=== PATIENT | male | born 1960 | race Caucasian/White ===

== ENCOUNTER 2018-03-08 12:02 | Emergency (ER) | payer OTHER ==
[2018-03-08 12:31] VITALS: BP 161/99
[2018-03-08] MEDS ORDERED: Alum Hydrox/Mag Hydrox/Simeth 15 ML, Lidocaine 2% 15 ML PO ONE ×2 (13:20)
--- NOTE | 2018-03-08 13:29 | EDM.PDOC ---
<Kate Angeles N - Last Filed: 03/08/18 13:23> ED HPI GENERAL MEDICAL PROBLEM - General Chief Complaint: Respiratory Problem Stated Complaint: FEELING WEAK, SOB Time Seen by Provider: 03/08/18 15:34 - History of Present Illness INITIAL COMMENTS - FREE TEXT/NARRATIVE: Pako is a 57-year-old male that presents to the ER with complaints of exertional dyspnea and weakness which began yesterday. States that he notices increases in his heart rate as well as difficulty breathing with any activity. Reports an ongoing productive cough over the past month as well as post-nasal drip. Denies any earache, sore throat, fevers, or chills. He has had some diarrhea over the past two days as well. He is a known alcoholic, and states he last drank 6 beers three days ago. He denies any illicit drug use, but does chew tobacco 1 pack/day. He ran out of his Clonazepam two days ago, and thinks he may be in withdrawals from that. He also reports mid-epigastric tenderness which is burning and heavy in nature. - Related Data Allergies Allergy/AdvReac Type Severity Reaction Status Date / Time No Known Allergies Allergy Verified 03/08/18 12:30 Home Meds: Home Meds Cetirizine HCl [Wal-Zyr] 10 mg PO DAILY 03/26/15 [History] ClonazePAM [KlonoPIN] 1 mg PO BEDTIME 03/26/15 [History] FLUoxetine [PROzac] 80 mg PO DAILY 03/26/15 [History] Pantoprazole Sodium 40 mg PO BID 03/26/15 [History] Simvastatin [Zocor] 10 mg PO BEDTIME 03/26/15 [History] Amoxicillin/Clavulanate K [Augmentin 875-125 MG] 1 tab PO BID #20 tablet [Rx] clonazePAM [Clonazepam] 1 mg PO QPM #10 tab.rapdis 03/08/18 [Rx] Past Medical History Gastrointestinal History: Reports: GERD Musculoskeletal History: Reports: Fracture Neurological History: Reports: Concussion Other Neuro History: Restless leg syndrome Psychiatric History: Reports: Addiction, Depression - Infectious Disease History Infectious Disease History: Reports: Chicken Pox - Past Surgical History GI Surgical History: Reports: Colonoscopy, EGD Social & Family History - Family History Cardiac: Reports: CAD - Tobacco Use Smoking Status *Q: Never Smoker Years of Tobacco use: 40 Packs/Tins Daily: 1 Used Tobacco, but Quit: No Second Hand Smoke Exposure: No - Caffeine Use Caffeine Use: Reports: Soda - Alcohol Use Days Per Week of Alcohol Use: 1 Number of Drinks Per Day: 6 Total Drinks Per Week: 6 Date of Last Drink: 03/05/18 Time of Last Drink: 23:00 - Recreational Drug Use Recreational Drug Use: No ED ROS GENERAL - Review of Systems Constitutional: Reports: Weakness, Fatigue. Denies: Fever, Chills, Malaise HEENT: Reports: Eye Discharge, Rhinitis. Denies: Ear Discharge, Ear Pain, Hearing Loss, Throat Pain, Vision Change Respiratory: Reports: Shortness of Breath, Cough, Sputum (Green). Denies: Pleuritic Chest Pain, Hemoptysis Cardiovascular: Reports: Dyspnea on Exertion, Palpitations. Denies: Chest Pain , Edema Endocrine: Reports: Fatigue GI/Abdominal: Reports: Abdominal Pain (Upper quadrants bilaterally), Diarrhea, Nausea. Denies: Hematemesis, Vomiting : Denies: Frequency, Pain Musculoskeletal: Reports: No Symptoms Skin: Reports: No Symptoms Neurological: Reports: Confusion (Occasional with dyspneic episodes), Weakness. Denies: Gait Disturbance Psychiatric: Reports: Anxiety, Confusion, Depression Hematologic/Lymphatic: Denies: Swollen Glands ED EXAM, GENERAL - Physical Exam General Appearance: Alert, No Apparent Distress, Anxious (Mildly) Eye Exam: Bilateral Eye: Conjunctival Injection, Nystagmus, PERRL Ears: Normal External Exam, Normal Canal, Hearing Grossly Normal, Normal TMs Ear Exam: Bilateral Ear: Auricle Normal, Canal Normal, TM normal Nose: Normal Inspection, Normal Mucosa, No Blood. No: Nasal Flaring Throat/Mouth: Normal Inspection, Normal Oropharynx, Other (Discolored teeth) Head: Atraumatic, Normocephalic Neck: Normal Inspection, Non-Tender. No: Lymphadenopathy (R), Lymphadenopathy ( L) Respiratory/Chest: No Respiratory Distress, Lungs Clear, Normal Breath Sounds Cardiovascular: Normal Peripheral Pulses, Regular Rate, Rhythm, No Edema, No Gallop, No Murmur, No Rub Peripheral Pulses: 2+: Radial (L), Radial (R) GI/Abdominal: Normal Bowel Sounds, Soft, No Mass, Tender (LUQ tenderness to palpation) (Male) Exam: Deferred Rectal (Males) Exam: Deferred Neurological: Alert, Oriented, Normal Cognition, Slow to Respond Psychiatric: Anxious Skin Exam: Warm, Dry, Intact, Normal Color Lymphatic: No Adenopathy Course - Vital Signs Last Recorded V/S: Last Vital Signs Temp 97.5 F 03/08/18 12:33 Pulse 88 03/08/18 12:33 Resp 20 03/08/18 12:33 BP 161/99 H 03/08/18 12:33 Pulse Ox 98 03/08/18 12:33 - Orders/Labs/Meds Orders: Active Orders 24 hr Category Date Time Status Cardiac Monitoring [RC] .As Directed Care 03/08/18 13:18 Active EKG Documentation Completion [RC] ASDIRECTED Care 03/08/18 13:19 Active Chest 2V [CR] Stat Exams 03/08/18 13:18 Taken EKG 12 Lead [EK] Stat Ther 03/08/18 13:18 Ordered Labs: Laboratory Tests 03/08/18 03/08/18 03/08/18 Range/Units 13:20 13:35 13:35 WBC 6.6 (4.5-11.0) K/uL RBC 4.58 (4.30-5.90) M/uL Hgb 14.2 (12.0-15.0) g/dL Hct 40.5 (40.0-54.0) % MCV 88 (80-98) fL MCH 31 (27-31) pg MCHC 35 (32-36) % Plt Count 293 (150-400) K/uL Neut % (Auto) 75 H (36-66) % Lymph % (Auto) 15 L (24-44) % [place] % (Auto) 9 H (2-6) % Eos % (Auto) 0 L (2-4) % Baso % (Auto) 0 (0-1) % Sodium 133 L (140-148) mmol/L Potassium 3.8 (3.6-5.2) mmol/L Chloride 94 L (100-108) mmol/L Carbon Dioxide 27 (21-32) mmol/L Anion Gap 15.8 H (5.0-14.0) mmol/L BUN 6 L (7-18) mg/dL Creatinine 0.9 (0.8-1.3) mg/dL Est Cr Clr Drug Dosing 99.96 mL/min Estimated GFR (MDRD) > 60 (>60) Glucose 109 H (74-106) mg/dL Lactic Acid (0.4-2.0) mmol/L Calcium 9.3 (8.5-10.1) mg/dL Total Bilirubin 0.7 (0.2-1.0) mg/dL AST 20 (15-37) U/L ALT 26 (12-78) U/L Alkaline Phosphatase 66 (46-116) U/L CK-MB (CK-2) 1.0 (0-3.6) mg/mL Troponin I < 0.017 (0.000-0.056) ng/mL NT-Pro-B Natriuret Pep (5-125) pg/mL Total Protein 7.5 (6.4-8.2) g/dL Albumin 4.0 (3.4-5.0) g/dL Globulin 3.5 (2.3-3.5) g/dL Albumin/Globulin Ratio 1.1 L (1.2-2.2) Urine Opiates Screen Negative (NEGATIVE) Ur Oxycodone Screen Negative (NEGATIVE) Urine Methadone Screen Negative (NEGATIVE) Ur Propoxyphene Screen Negative (NEGATIVE) Ur Barbiturates Screen Negative (NEGATIVE) Ur Tricyclics Screen Negative (NEGATIVE) Ur Phencyclidine Scrn Negative (NEGATIVE) Ur Amphetamine Screen Negative (NEGATIVE) U Methamphetamines Scrn Negative (NEGATIVE) Urine MDMA Screen Negative (NEGATIVE) U Benzodiazepines Scrn Negative (NEGATIVE) U Cocaine Metab Screen Negative (NEGATIVE) U Marijuana (THC) Screen Negative (NEGATIVE) Ethyl Alcohol mg/dL 03/08/18 03/08/18 03/08/18 Range/Units 13:35 13:35 13:52 WBC (4.5-11.0) K/uL RBC (4.30-5.90) M/uL Hgb (12.0-15.0) g/dL Hct (40.0-54.0) % MCV (80-98) fL MCH (27-31) pg MCHC (32-36) % Plt Count (150-400) K/uL Neut % (Auto) (36-66) % Lymph % (Auto) (24-44) % [place] % (Auto) (2-6) % Eos % (Auto) (2-4) % Baso % (Auto) (0-1) % Sodium (140-148) mmol/L Potassium (3.6-5.2) mmol/L Chloride (100-108) mmol/L Carbon Dioxide (21-32) mmol/L Anion Gap (5.0-14.0) mmol/L BUN (7-18) mg/dL Creatinine (0.8-1.3) mg/dL Est Cr Clr Drug Dosing mL/min Estimated GFR (MDRD) (>60) Glucose (74-106) mg/dL Lactic Acid 1.3 (0.4-2.0) mmol/L Calcium (8.5-10.1) mg/dL Total Bilirubin (0.2-1.0) mg/dL AST (15-37) U/L ALT (12-78) U/L Alkaline Phosphatase (46-116) U/L CK-MB (CK-2) (0-3.6) mg/mL Troponin I (0.000-0.056) ng/mL NT-Pro-B Natriuret Pep 67 (5-125) pg/mL Total Protein (6.4-8.2) g/dL Albumin (3.4-5.0) g/dL Globulin (2.3-3.5) g/dL Albumin/Globulin Ratio (1.2-2.2) Urine Opiates Screen (NEGATIVE) Ur Oxycodone Screen (NEGATIVE) Urine Methadone Screen (NEGATIVE) Ur Propoxyphene Screen (NEGATIVE) Ur Barbiturates Screen (NEGATIVE) Ur Tricyclics Screen (NEGATIVE) Ur Phencyclidine Scrn (NEGATIVE) Ur Amphetamine Screen (NEGATIVE) U Methamphetamines Scrn (NEGATIVE) Urine MDMA Screen (NEGATIVE) U Benzodiazepines Scrn (NEGATIVE) U Cocaine Metab Screen (NEGATIVE) U Marijuana (THC) Screen (NEGATIVE) Ethyl Alcohol < 3 mg/dL Meds: Medications Discontinued Medications Generic Name Dose Route Start Last Admin Trade Name Freq PRN Reason Stop Dose Admin Al Hydroxide/Mg Hydroxide 15 0 ml 03/08/18 13:20 03/08/18 13:32 ml/ Lidocaine HCl 15 ml PO 03/08/18 13:21 30 ml ONETIME ONE Administration Departure - Departure Disposition: Home, Self-Care 01 Clinical Impression: Sinusitis Qualifiers: Sinusitis location: maxillary Chronicity: acute Recurrence: non-recurrent Qualified Code(s): J01.00 - Acute maxillary sinusitis, unspecified - Discharge Information Prescriptions: Amoxicillin/Clavulanate K [Augmentin 875-125 MG] 1 tab PO BID #20 tablet clonazePAM [Clonazepam] 1 mg PO QPM #10 tab.rapdis Referrals: Gabrielle Pena MD [Primary Care Provider] - Forms: ED Department Discharge Additional Instructions: Take full course of antibiotics, resume your Klonopin, Please followup with your primary care provider in 5-7 days if not better, please call return to the emergency department with worsening of symptoms. Your medications have been faxed to [facility] <Bashir Ott - Last Filed: 03/08/18 15:34> ED ROS GENERAL - Review of Systems Review Of Systems: See Below ED EXAM, GENERAL - Physical Exam Exam: See Below Free Text/Narrative:: Examined by myself and agree with examination by nurse practitioner student Departure - Departure Time of Disposition: 15:33 Condition: Fair - Assessment/Plan Plan: Assessment Acuity = acute Site and laterality = sinusitis Etiology = probable bacterial cause Manifestations = none Location of injury = Home Lab values = CBC, CMP, troponin, BNP, EKG, chest x-ray all within normal limits Plan I did review lab EKG chest x-ray results with him plan is to discharge home treatment with Augmentin 875 by mouth twice a day 10 days also prescription refill of his clonazepam 1 mg by mouth daily at bedtime total #10 all these medications faxed alcohol herrera have him follow-up with his primary care provider in the next 5-7 days for reevaluation if no improvement Bashir Campos MD was personally available for consultation in the ED. I have reviewed the chart and agree with the documentation as recorded by the nurse practitioner student, including the assessment, treatment plan and disposition. Bashir Campos MD personally saw and examined the patient. I have reviewed and agree with the nurse practitioner student's findings. This note was dictated using [employer] voice recognition software please call with any questions on syntax or grammar.
== END 2018-03-08 15:51 | disposition home or self-care (01) ==
LOC: JP.ED 12:02
DX: J01.00 Acute maxillary sinusitis, unspecified (principal); Z79.899 Other long term (current) drug therapy
CPT/HCPCS: 36415; 71046; 80053; 80305; 82553; 83605; 83880; 84484; 85025; 93005; 99285; A9270; G0480; 93010

== ENCOUNTER 2018-05-06 10:28 | Emergency (ER) | payer OTHER ==
[2018-05-06 11:47] VITALS: BP 149/98
--- NOTE | 2018-05-06 11:47 | EDM.PDOCBH ---
ED HPI GENERAL MEDICAL PROBLEM - General Chief Complaint: Drug or Alcohol Abuse Stated Complaint: DETOX EVAL Time Seen by Provider: 05/06/18 11:35 Source of Information: Reports: Patient, Family History Limitations: Reports: No Limitations - History of Present Illness INITIAL COMMENTS - FREE TEXT/NARRATIVE: 57-year-old male with chronic alcoholism, he has been through treatment before is in today seeking detox. He also has chronic anxiety and takes clonazepam on a regular basis, he has not had any for the last 3 days. Feels irritable and shaky but is stable. Last known EtOH was this morning. Onset: Unknown/Unsure Associated Symptoms: Reports: Confusion, Malaise, Nausea/Vomiting, Weakness. Denies: Chest Pain - Related Data Allergies Allergy/AdvReac Type Severity Reaction Status Date / Time No Known Allergies Allergy Verified 03/08/18 12:30 Home Meds: Home Meds Cetirizine HCl [Wal-Zyr] 10 mg PO DAILY 03/26/15 [History] ClonazePAM [KlonoPIN] 1 mg PO BEDTIME 03/26/15 [History] FLUoxetine [PROzac] 80 mg PO DAILY 03/26/15 [History] Pantoprazole Sodium 40 mg PO BID 03/26/15 [History] Simvastatin [Zocor] 10 mg PO BEDTIME 03/26/15 [History] clonazePAM [Clonazepam] 1 mg PO QPM #10 tab.rapdis 03/08/18 [Rx] Past Medical History Gastrointestinal History: Reports: GERD Musculoskeletal History: Reports: Fracture Neurological History: Reports: Concussion Other Neuro History: Restless leg syndrome Psychiatric History: Reports: Addiction, Depression - Infectious Disease History Infectious Disease History: Reports: Chicken Pox - Past Surgical History GI Surgical History: Reports: Colonoscopy, EGD Social & Family History - Family History Cardiac: Reports: CAD - Tobacco Use Smoking Status *Q: Never Smoker - Caffeine Use Caffeine Use: Reports: Soda - Alcohol Use Days Per Week of Alcohol Use: 3 Number of Drinks Per Day: 12 Total Drinks Per Week: 36 - Recreational Drug Use Recreational Drug Use: No ED ROS GENERAL - Review of Systems Review Of Systems: See Below Constitutional: Reports: Chills. Denies: Fever HEENT: Reports: No Symptoms Respiratory: Denies: Shortness of Breath Cardiovascular: Denies: Chest Pain GI/Abdominal: Reports: Abdominal Pain, Nausea, Vomiting : Reports: No Symptoms Skin: Reports: No Symptoms Neurological: Reports: Headache ED EXAM, BEHAVIORAL HEALTH - Physical Exam Exam: See Below Exam Limited By: Intoxication General Appearance: Alert, No Apparent Distress, Other (Patient appears tired but when awoken he is somewhat agitated) Eye Exam: Bilateral Eye: Normal Inspection (No jaundice) Neck: Supple Respiratory/Chest: No Respiratory Distress, Lungs Clear Cardiovascular: Regular Rate, Rhythm. No: Tachycardia GI/Abdominal: Other (Reacts with tenderness to even light palpation of the entire abdomen) Extremities: No: Pedal Edema Neurological: Oriented x 3 Psychiatric: Depressed Mood, Flat Affect, Tearful COURSE, BEHAVIORAL HEALTH COMP - Course Vital Signs: Last Vital Signs Temp 98.6 F 05/06/18 11:46 Pulse 82 05/06/18 11:46 Resp 18 05/06/18 11:46 BP 149/98 H 05/06/18 11:46 Pulse Ox 97 05/06/18 11:46 Orders, Labs, Meds: Laboratory Tests 05/06/18 05/06/18 05/06/18 Range/Units 11:49 11:49 11:56 WBC 4.6 (4.5-11.0) K/uL RBC 4.73 (4.30-5.90) M/uL Hgb 14.6 (12.0-15.0) g/dL Hct 41.8 (40.0-54.0) % MCV 88 (80-98) fL MCH 31 (27-31) pg MCHC 35 (32-36) % Plt Count 328 (150-400) K/uL Neut % (Auto) 56 (36-66) % Lymph % (Auto) 35 (24-44) % [place] % (Auto) 8 H (2-6) % Eos % (Auto) 0 L (2-4) % Baso % (Auto) 1 (0-1) % Sodium (140-148) mmol/L Potassium (3.6-5.2) mmol/L Chloride (100-108) mmol/L Carbon Dioxide (21-32) mmol/L Anion Gap (5.0-14.0) mmol/L BUN (7-18) mg/dL Creatinine (0.8-1.3) mg/dL Est Cr Clr Drug Dosing mL/min Estimated GFR (MDRD) (>60) Glucose (74-106) mg/dL Calcium (8.5-10.1) mg/dL Total Bilirubin (0.2-1.0) mg/dL AST (15-37) U/L ALT (12-78) U/L Alkaline Phosphatase (46-116) U/L Total Protein (6.4-8.2) g/dL Albumin (3.4-5.0) g/dL Globulin (2.3-3.5) g/dL Albumin/Globulin Ratio (1.2-2.2) Urine Color Yellow Urine Appearance Clear Urine pH 8.0 (4.5-8.0) Ur Specific [place] 1.005 L (1.008-1.030) Urine Protein Negative (NEGATIVE) mg/dL Urine Glucose (UA) Normal (NEGATIVE) mg/dL Urine Ketones Negative (NEGATIVE) mg/dL Urine Occult Blood Negative (NEGATIVE) Urine Nitrite Negative (NEGAITVE) Urine Bilirubin Negative (NEGATIVE) Urine Urobilinogen Normal (NORMAL) mg/dL Ur Leukocyte Esterase Negative (NEGATIVE) Urine RBC Not seen (0-5) Urine WBC Not seen (0-5) Ur Epithelial Cells Rare Amorphous Sediment Not seen Urine Bacteria Not seen Urine Mucus Not seen Urine Opiates Screen Negative (NEGATIVE) Ur Oxycodone Screen Negative (NEGATIVE) Urine Methadone Screen Negative (NEGATIVE) Ur Propoxyphene Screen Negative (NEGATIVE) Ur Barbiturates Screen Negative (NEGATIVE) Ur Tricyclics Screen Negative (NEGATIVE) Ur Phencyclidine Scrn Negative (NEGATIVE) Ur Amphetamine Screen Negative (NEGATIVE) U Methamphetamines Scrn Negative (NEGATIVE) Urine MDMA Screen Negative (NEGATIVE) U Benzodiazepines Scrn Negative (NEGATIVE) U Cocaine Metab Screen Negative (NEGATIVE) U Marijuana (THC) Screen Negative (NEGATIVE) Ethyl Alcohol mg/dL 05/06/18 05/06/18 Range/Units 11:56 11:56 WBC (4.5-11.0) K/uL RBC (4.30-5.90) M/uL Hgb (12.0-15.0) g/dL Hct (40.0-54.0) % MCV (80-98) fL MCH (27-31) pg MCHC (32-36) % Plt Count (150-400) K/uL Neut % (Auto) (36-66) % Lymph % (Auto) (24-44) % [place] % (Auto) (2-6) % Eos % (Auto) (2-4) % Baso % (Auto) (0-1) % Sodium 135 L (140-148) mmol/L Potassium 3.6 (3.6-5.2) mmol/L Chloride 97 L (100-108) mmol/L Carbon Dioxide 23 (21-32) mmol/L Anion Gap 18.6 H (5.0-14.0) mmol/L BUN 5 L (7-18) mg/dL Creatinine 0.7 L (0.8-1.3) mg/dL Est Cr Clr Drug Dosing 133.17 mL/min Estimated GFR (MDRD) > 60 (>60) Glucose 105 (74-106) mg/dL Calcium 9.0 (8.5-10.1) mg/dL Total Bilirubin 0.6 (0.2-1.0) mg/dL AST 26 (15-37) U/L ALT 23 (12-78) U/L Alkaline Phosphatase 78 (46-116) U/L Total Protein 7.5 (6.4-8.2) g/dL Albumin 4.0 (3.4-5.0) g/dL Globulin 3.5 (2.3-3.5) g/dL Albumin/Globulin Ratio 1.1 L (1.2-2.2) Urine Color Urine Appearance Urine pH (4.5-8.0) Ur Specific [place] (1.008-1.030) Urine Protein (NEGATIVE) mg/dL Urine Glucose (UA) (NEGATIVE) mg/dL Urine Ketones (NEGATIVE) mg/dL Urine Occult Blood (NEGATIVE) Urine Nitrite (NEGAITVE) Urine Bilirubin (NEGATIVE) Urine Urobilinogen (NORMAL) mg/dL Ur Leukocyte Esterase (NEGATIVE) Urine RBC (0-5) Urine WBC (0-5) Ur Epithelial Cells Amorphous Sediment Urine Bacteria Urine Mucus Urine Opiates Screen (NEGATIVE) Ur Oxycodone Screen (NEGATIVE) Urine Methadone Screen (NEGATIVE) Ur Propoxyphene Screen (NEGATIVE) Ur Barbiturates Screen (NEGATIVE) Ur Tricyclics Screen (NEGATIVE) Ur Phencyclidine Scrn (NEGATIVE) Ur Amphetamine Screen (NEGATIVE) U Methamphetamines Scrn (NEGATIVE) Urine MDMA Screen (NEGATIVE) U Benzodiazepines Scrn (NEGATIVE) U Cocaine Metab Screen (NEGATIVE) U Marijuana (THC) Screen (NEGATIVE) Ethyl Alcohol 292 mg/dL Re-Assessment/Re-Exam: Patient is willing to go to detox. His EtOH is 0.292. Urine drug screen is negative, the rest of his labs are reassuring including a normal CBC and relatively normal CMP. He'll be transported by his son Departure - Departure Time of Disposition: 12:49 Disposition: DC/Tfer to Other 70 Condition: Fair Clinical Impression: Alcohol abuse - Discharge Information Instructions: Alcohol Intoxication, [id number] Referrals: Gabrielle Pena MD [Primary Care Provider] - Forms: ED Department Discharge Care Plan Goals: Go directly to [facility] for admission and treatment.
== END 2018-05-06 15:45 | disposition other institution (70) ==
LOC: JP.ED 10:28
DX: F10.229 Alcohol dependence with intoxication, unspecified (principal); Y90.8 Blood alcohol level of 240 mg/100 ml or more
CPT/HCPCS: 36415; 80053; 80305; 81001; 85025; 99284; G0480

== ENCOUNTER 2018-11-24 20:14 | Emergency (ER) | payer OTHER ==
[2018-11-24] MEDS ORDERED: Ondansetron 4 MG/2 ML SDV IVPUSH ONE ×2 (20:52→22:20)
[2018-11-24 20:56] VITALS: BP 116/83; PULSE 84
--- NOTE | 2018-11-24 20:59 | EDM.PDOC ---
ED HPI GENERAL MEDICAL PROBLEM - General Chief Complaint: ENT Problem Stated Complaint: LEFT UPPER JAW/TOOTH PAIN Time Seen by Provider: 11/24/18 20:40 Source of Information: Reports: Patient, Family (female significant other) History Limitations: Reports: Altered Mental Status (likely alcohol intoxication and dehydration) - History of Present Illness INITIAL COMMENTS - FREE TEXT/NARRATIVE: 57 year old male is brought to ER but significant other due to significant dental pain concerns and alcohol use over the last 2 weeks. Patient has a history of alcohol abuse and intoxication and was doing well until 2 weeks ago and has been drinking and taking ASA for tooth pain without improvement. Patient has numerous poor teeth and poor oral health. He has had increased pain in his right lower jaw. Patient has not ate anything in almost 3 days due to nausea and vomiting. Patient has been vomiting up blood for the last 24 hours. Patient has not had a bowel movement in the last 3 days. He denies urinary symptoms or concerns. Patient denies rashes or sore to his skin. He denies headache, cough or URI symptoms. Patient has had intermittent chest pain with dry heaving and vomiting. Patient is complaining of feeling weak which is typical for his alcohol visit. Patient has a history long standing alcohol use with relapse the last 2 weeks or longer. - Related Data Allergies Allergy/AdvReac Type Severity Reaction Status Date / Time No Known Allergies Allergy Verified 11/24/18 20:23 Home Meds: Home Meds ClonazePAM [KlonoPIN] 1 mg PO BEDTIME 03/26/15 [History] Pantoprazole Sodium 40 mg PO BID 03/26/15 [History] Chlorhexidine Gluconate 0.12% [Peridex 0.12% Rinse] 15 ml MM BID 10 Days #480 ml 11/24/18 [Rx] Omeprazole 20 mg PO DAILY 30 Days #30 capsule. 11/24/18 [Rx] Sertraline [Zoloft] 0.5 tab PO DAILY 11/24/18 [History] Sucralfate [Carafate] 1 gm PO QIDACANDBED 10 Days #40 tablet 11/24/18 [Rx] clonazePAM [Clonazepam] 1 mg PO BID PRN 5 Days #10 tab.rapdis 11/24/18 [Rx] clonazePAM [Klonopin] 1 mg PO BEDTIME 10 Days #10 tablet 11/24/18 [Rx] Past Medical History Gastrointestinal History: Reports: GERD Musculoskeletal History: Reports: Fracture Neurological History: Reports: Concussion Other Neuro History: Restless leg syndrome Psychiatric History: Reports: Addiction, Depression - Infectious Disease History Infectious Disease History: Reports: Chicken Pox - Past Surgical History GI Surgical History: Reports: Colonoscopy, EGD Social & Family History - Family History Cardiac: Reports: CAD - Caffeine Use Caffeine Use: Reports: Soda - Recreational Drug Use Recreational Drug Use: No ED ROS GENERAL - Review of Systems Review Of Systems: Unable To Obtain (limited due to alcohol intoxication and dehydration with dry heaving) ED EXAM, GENERAL - Physical Exam Exam: See Below Exam Limited By: Intoxication (possible (likely)) General Appearance: Alert, Moderate Distress (nausea/vomiting with facial ), Thin Eye Exam: Bilateral Eye: EOMI, PERRL Ears: Normal External Exam, Normal Canal, Hearing Grossly Normal Nose: Normal Inspection, Normal Mucosa Throat/Mouth: Normal Inspection, Normal Lips, Normal Oropharynx (unable to assess due to gagging with opening mouth), Normal Voice. No: Normal Teeth, Normal Gums Head: Normocephalic Neck: Normal Inspection, Supple, Non-Tender, Full Range of Motion Respiratory/Chest: No Respiratory Distress, Lungs Clear, No Accessory Muscle Use , Decreased Breath Sounds Cardiovascular: Normal Peripheral Pulses, Regular Rate, Rhythm GI/Abdominal: Other (thin ) Back Exam: Normal Inspection, Full Range of Motion. No: CVA Tenderness (R), CVA Tenderness (L) Neurological: Slow to Respond, Memory Loss Recent Events, Abnormal Gait, Sensory /Motor Deficit (general functional deficets noted) EKG INTERPRETATION EKG Date: 11/24/18 Time: 21:28 Rhythm: NSR Rate (Beats/Min): 95 [place]: LAD-Left Bartlett Deviation P-Wave: Present QRS: Normal ST-T: Normal (flattening of T wave in V2 w/ RSR' in V1 and V2) QT: Prolonged (boarderline 457) Comparison: No Change (dated February 2018) Course - Vital Signs Last Recorded V/S: Last Vital Signs Temp 37.1 C 11/24/18 20:37 Pulse 84 11/24/18 20:37 Resp 14 11/24/18 20:37 BP 116/83 11/24/18 20:37 Pulse Ox 94 L 11/24/18 20:37 - Orders/Labs/Meds Orders: Active Orders 24 hr Category Date Time Status Cardiac Monitoring [RC] .As Directed Care 11/24/18 20:49 Active EKG Documentation Completion [RC] ASDIRECTED Care 11/24/18 20:49 Active EKG Documentation Completion [RC] ASDIRECTED Care 11/24/18 20:51 Inactive Sodium Chloride 0.9% [Normal Saline] 1,000 ml Med 11/24/18 21:00 Active IV ASDIRECTED Sodium Chloride 0.9% [Normal Saline] 1,000 ml Med 11/24/18 21:45 Active IV ASDIRECTED EKG 12 Lead [EK] Urgent Ther 11/24/18 20:49 Ordered Medication Orders Sodium Chloride (Normal Saline) 1,000 mls @ 500 mls/hr IV ASDIRECTED SHALONDA Last Admin: 11/24/18 21:08 Dose: 500 mls/hr Sodium Chloride (Normal Saline) 1,000 mls @ 500 mls/hr IV ASDIRECTED SHALONDA Last Admin: 11/24/18 22:10 Dose: 500 mls/hr Labs: Laboratory Tests 11/24/18 11/24/18 11/24/18 Range/Units 21:05 21:05 21:05 WBC 5.2 (4.5-11.0) K/uL RBC 4.63 (4.30-5.90) M/uL Hgb 14.8 (12.0-15.0) g/dL Hct 40.9 (40.0-54.0) % MCV 88 (80-98) fL MCH 32 H (27-31) pg MCHC 36 (32-36) % Plt Count 270 (150-400) K/uL Neut % (Auto) 56 (36-66) % Lymph % (Auto) 25 (24-44) % [place] % (Auto) 18 H (2-6) % Eos % (Auto) 1 L (2-4) % Baso % (Auto) 1 (0-1) % PT 11.9 (9.5-12.0) sec INR 1.11 (0.80-1.20) Sodium 137 L (140-148) mmol/L Potassium 3.2 L (3.6-5.2) mmol/L Chloride 99 L (100-108) mmol/L Carbon Dioxide 25 (21-32) mmol/L Anion Gap 16.2 H (5.0-14.0) mmol/L BUN 1 L D (7-18) mg/dL Creatinine 0.8 (0.8-1.3) mg/dL Est Cr Clr Drug Dosing 112.45 mL/min Estimated GFR (MDRD) > 60 (>60) Glucose 119 H (74-106) mg/dL Calcium 8.4 L (8.5-10.1) mg/dL Magnesium (1.8-2.4) mg/dL Total Bilirubin (0.2-1.0) mg/dL Direct Bilirubin (0.0-0.2) mg/dL Indirect Bilirubin AST (15-37) U/L ALT (12-78) U/L Alkaline Phosphatase (46-116) U/L Total Protein (6.4-8.2) g/dL Albumin (3.4-5.0) g/dL Globulin (2.3-3.5) g/dL Albumin/Globulin Ratio (1.2-2.2) Lipase 231 (73-393) U/L Urine Color (YELLOW) Urine Appearance (CLEAR) Urine pH (5.0-8.0) Ur Specific [place] (1.008-1.030) Urine Protein (NEGATIVE) mg/dL Urine Glucose (UA) (NEGATIVE) mg/dL Urine Ketones (NEGATIVE) mg/dL Urine Occult Blood (NEGATIVE) Urine Nitrite (NEGATIVE) Urine Bilirubin (NEGATIVE) Urine Urobilinogen (0.2-1.0) EU/dL Ur Leukocyte Esterase (NEGATIVE) Urine RBC (0-5) Urine WBC (0-5) Ur Epithelial Cells Amorphous Sediment Urine Bacteria Urine Mucus Salicylates (2.0-20.0) mg/dL Ethyl Alcohol mg/dL 11/24/18 11/24/18 11/24/18 Range/Units 21:05 21:05 21:05 WBC (4.5-11.0) K/uL RBC (4.30-5.90) M/uL Hgb (12.0-15.0) g/dL Hct (40.0-54.0) % MCV (80-98) fL MCH (27-31) pg MCHC (32-36) % Plt Count (150-400) K/uL Neut % (Auto) (36-66) % Lymph % (Auto) (24-44) % [place] % (Auto) (2-6) % Eos % (Auto) (2-4) % Baso % (Auto) (0-1) % PT (9.5-12.0) sec INR (0.80-1.20) Sodium (140-148) mmol/L Potassium (3.6-5.2) mmol/L Chloride (100-108) mmol/L Carbon Dioxide (21-32) mmol/L Anion Gap (5.0-14.0) mmol/L BUN (7-18) mg/dL Creatinine (0.8-1.3) mg/dL Est Cr Clr Drug Dosing mL/min Estimated GFR (MDRD) (>60) Glucose (74-106) mg/dL Calcium (8.5-10.1) mg/dL Magnesium (1.8-2.4) mg/dL Total Bilirubin 0.7 (0.2-1.0) mg/dL Direct Bilirubin 0.18 (0.0-0.2) mg/dL Indirect Bilirubin 0.52 AST 77 H D (15-37) U/L ALT 32 (12-78) U/L Alkaline Phosphatase 75 (46-116) U/L Total Protein 7.1 (6.4-8.2) g/dL Albumin 3.9 (3.4-5.0) g/dL Globulin 3.2 (2.3-3.5) g/dL Albumin/Globulin Ratio 1.2 (1.2-2.2) Lipase (73-393) U/L Urine Color (YELLOW) Urine Appearance (CLEAR) Urine pH (5.0-8.0) Ur Specific [place] (1.008-1.030) Urine Protein (NEGATIVE) mg/dL Urine Glucose (UA) (NEGATIVE) mg/dL Urine Ketones (NEGATIVE) mg/dL Urine Occult Blood (NEGATIVE) Urine Nitrite (NEGATIVE) Urine Bilirubin (NEGATIVE) Urine Urobilinogen (0.2-1.0) EU/dL Ur Leukocyte Esterase (NEGATIVE) Urine RBC (0-5) Urine WBC (0-5) Ur Epithelial Cells Amorphous Sediment Urine Bacteria Urine Mucus Salicylates 1.1 L (2.0-20.0) mg/dL Ethyl Alcohol 239 mg/dL 11/24/18 11/24/18 Range/Units 21:05 21:42 WBC (4.5-11.0) K/uL RBC (4.30-5.90) M/uL Hgb (12.0-15.0) g/dL Hct (40.0-54.0) % MCV (80-98) fL MCH (27-31) pg MCHC (32-36) % Plt Count (150-400) K/uL Neut % (Auto) (36-66) % Lymph % (Auto) (24-44) % [place] % (Auto) (2-6) % Eos % (Auto) (2-4) % Baso % (Auto) (0-1) % PT (9.5-12.0) sec INR (0.80-1.20) Sodium (140-148) mmol/L Potassium (3.6-5.2) mmol/L Chloride (100-108) mmol/L Carbon Dioxide (21-32) mmol/L Anion Gap (5.0-14.0) mmol/L BUN (7-18) mg/dL Creatinine (0.8-1.3) mg/dL Est Cr Clr Drug Dosing mL/min Estimated GFR (MDRD) (>60) Glucose (74-106) mg/dL Calcium (8.5-10.1) mg/dL Magnesium 1.9 (1.8-2.4) mg/dL Total Bilirubin (0.2-1.0) mg/dL Direct Bilirubin (0.0-0.2) mg/dL Indirect Bilirubin AST (15-37) U/L ALT (12-78) U/L Alkaline Phosphatase (46-116) U/L Total Protein (6.4-8.2) g/dL Albumin (3.4-5.0) g/dL Globulin (2.3-3.5) g/dL Albumin/Globulin Ratio (1.2-2.2) Lipase (73-393) U/L Urine Color Yellow (YELLOW) Urine Appearance Clear (CLEAR) Urine pH 7.0 (5.0-8.0) Ur Specific [place] 1.015 (1.008-1.030) Urine Protein Negative (NEGATIVE) mg/dL Urine Glucose (UA) Negative (NEGATIVE) mg/dL Urine Ketones Negative (NEGATIVE) mg/dL Urine Occult Blood Negative (NEGATIVE) Urine Nitrite Negative (NEGATIVE) Urine Bilirubin Negative (NEGATIVE) Urine Urobilinogen 0.2 (0.2-1.0) EU/dL Ur Leukocyte Esterase Negative (NEGATIVE) Urine RBC Not seen (0-5) Urine WBC Not seen (0-5) Ur Epithelial Cells Not seen Amorphous Sediment Rare Urine Bacteria Not seen Urine Mucus Not seen Salicylates (2.0-20.0) mg/dL Ethyl Alcohol mg/dL Meds: Medications Generic Name Dose Route Start Last Admin Trade Name Freq PRN Reason Stop Dose Admin Sodium Chloride 1,000 mls @ 500 mls/hr 11/24/18 21:00 11/24/18 21:08 Normal Saline IV 500 mls/hr ASDIRECTED SHALONDA Administration Sodium Chloride 1,000 mls @ 500 mls/hr 11/24/18 21:45 11/24/18 22:10 Normal Saline IV 500 mls/hr ASDIRECTED SHALONDA Administration Discontinued Medications Generic Name Dose Route Start Last Admin Trade Name Freq PRN Reason Stop Dose Admin Ceftriaxone Sodium 500 mg 11/24/18 21:41 11/24/18 22:10 Rocephin IVPUSH 11/24/18 21:42 500 mg ONETIME ONE Administration Lorazepam 1 mg 11/24/18 21:41 11/24/18 22:11 Ativan IVPUSH 11/24/18 21:42 1 mg ONETIME ONE Administration Lorazepam 1 mg 11/24/18 22:24 Ativan IVPUSH 11/24/18 22:25 ONETIME STA Multivitamins/Iron 1 tab 11/24/18 22:21 Child Chew Iron CHEW 11/24/18 22:22 DAILY STA Ondansetron HCl 4 mg 11/24/18 20:52 11/24/18 21:08 Zofran IVPUSH 11/24/18 20:53 4 mg ONETIME ONE Administration Ondansetron HCl 4 mg 11/24/18 22:20 Zofran IVPUSH 11/24/18 22:21 ONETIME ONE Pantoprazole Sodium 80 mg 11/24/18 21:45 Protonix Iv IVPUSH .BOLUS SHALONDA Pantoprazole Sodium 80 mg 11/24/18 21:53 11/24/18 22:10 Protonix Iv IVPUSH 11/24/18 21:54 80 mg .BOLUS STA Administration Sucralfate 1 gm 11/24/18 21:41 Carafate PO 11/24/18 21:42 ONETIME ONE Thiamine HCl 100 mg 11/24/18 22:20 Vitamin B-1 PO 11/24/18 22:21 ONETIME ONE - Re-Assessments/Exams Free Text/Narrative Re-Assessment/Exam: Repeat examination completed, nausea improving with medications. Significant other at bedside declines detox transfer due to family will pick him up and care for him. I informed her that he would be discharged in a couple of hours or sooner. 11/24/18 21:43 Female friend states family is unable to pick him up until am. We contacted the local detox facility and they have an open male bed at this time. Patient and female significant other will be informed that he will be discharged under her care or transfer to detox to ensure his safety until family or responsible democrat is available to care for him. 11/24/18 21:54 Patient and significant other decided that going to detox would be safe at this time due to history of withdrawal seizures in the past. Detox will help ensure a safe withdrawal process. It is voluntary and family may pick him up at any time. 11/24/18 22:25 Patient is medically cleared to go to Detox at [facility] to ensure a safe alcohol detox experience. 11/24/18 22:46 Departure - Departure Time of Disposition: 22:47 Disposition: DC/Tfer to Psych Hosp[facility] Clinical Impression: Alcohol intoxication, Mouth pain, Dehydration, Alcohol abuse - Discharge Information Prescriptions: Chlorhexidine Gluconate 0.12% [Peridex 0.12% Rinse] 15 ml MM BID 10 Days #480 ml clonazePAM [Clonazepam] 1 mg PO BID PRN 5 Days #10 tab.rapdis PRN Reason: Anxiety clonazePAM [Klonopin] 1 mg PO BEDTIME 10 Days #10 tablet Omeprazole 20 mg PO DAILY 30 Days #30 capsule. Sucralfate [Carafate] 1 gm PO QIDACANDBED 10 Days #40 tablet Instructions: Alcohol Use Disorder, Alcohol Withdrawal Syndrome, What You Need to Know About Alcohol Abuse and Dependence, Adult, Dehydration, Adult Referrals: Gabrielle Pena MD [Primary Care Provider] - Forms: ED Department Discharge Additional Instructions: 1. Discharge to Detox facility to ensure safe alcohol withdrawal and consider Alcohol treatment program. 2. Carafate 30 minutes before meals and bedtime to help with GI concern with alcohol use. 3. Omeprazole 20 mg daily x 30 days to help decrease stomach concerns/ ulceration due to alcohol withdrawal. 4. Increase fluid intake, clear liquids and advance as tolerated. 5. Peridex mouth wash for dental infection concerns. 6. Tylenol as needed for pain. Avoid Ibuprofen or NSAIDs. 7. Klonopin rdy tab BID prn anxiety and Klonopin 1mg bedtime. Caution with additional Ativan for withdrawal symptoms. - Problem List & Annotations (1) Alcohol abuse SNOMED Code(s): 48033199 Code(s): F10.10 - ALCOHOL ABUSE, UNCOMPLICATED Status: Acute Current Visit: Yes (2) Alcohol intoxication SNOMED Code(s): 89444413 Code(s): F10.929 - ALCOHOL USE, UNSPECIFIED WITH INTOXICATION, UNSPECIFIED Status: Acute Current Visit: Yes (3) Dehydration SNOMED Code(s): 38211086 Code(s): E86.0 - DEHYDRATION Status: Acute Current Visit: Yes (4) Mouth pain SNOMED Code(s): 675711795 Code(s): K13.79 - OTHER LESIONS OF ORAL MUCOSA Status: Acute Current Visit: Yes - My Orders Last 24 Hours: My Active Orders 11/24/18 20:49 Cardiac Monitoring [RC] .As Directed EKG Documentation Completion [RC] ASDIRECTED EKG 12 Lead [EK] Urgent 11/24/18 20:51 EKG Documentation Completion [RC] ASDIRECTED 11/24/18 21:00 Sodium Chloride 0.9% [Normal Saline] 1,000 ml IV ASDIRECTED 11/24/18 21:45 Sodium Chloride 0.9% [Normal Saline] 1,000 ml IV ASDIRECTED - Assessment/Plan Last 24 Hours: My Active Orders 11/24/18 20:49 Cardiac Monitoring [RC] .As Directed EKG Documentation Completion [RC] ASDIRECTED EKG 12 Lead [EK] Urgent 11/24/18 20:51 EKG Documentation Completion [RC] ASDIRECTED 11/24/18 21:00 Sodium Chloride 0.9% [Normal Saline] 1,000 ml IV ASDIRECTED 11/24/18 21:45 Sodium Chloride 0.9% [Normal Saline] 1,000 ml IV ASDIRECTED
[2018-11-24] MEDS ORDERED: Sodium Chloride 0.9% 1,000 ML IV SCH ×2 (21:00→21:45)
[2018-11-24] MEDS ORDERED: cefTRIAXone 500 MG Vial IVPUSH ONE (21:41)
[2018-11-24] MEDS ORDERED: Sucralfate Suspension 1 GM/10 ML Cup PO ONE (21:41)
[2018-11-24] MEDS ORDERED: LORazepam 2 MG/ML SDV IVPUSH ONE (21:41)
[2018-11-24] MEDS ORDERED: Pantoprazole 40 MG Vial IVPUSH SCH (21:45)
[2018-11-24] MEDS ORDERED: Pantoprazole 40 MG Vial IVPUSH STA (21:53)
[2018-11-24] MEDS ORDERED: Thiamine 100 MG Tab PO ONE (22:20)
[2018-11-24] MEDS ORDERED: Multivitamins with Iron Tab.Chew CHEW STA (22:21)
[2018-11-24] MEDS ORDERED: LORazepam 2 MG/ML SDV IVPUSH STA (22:24)
[2018-11-24] MEDS ORDERED: ClonazePAM 1 MG Tab PO PRN (22:44)
== END 2018-11-24 23:32 ==
LOC: JP.ED 20:14
DX: E86.0 Dehydration (principal); K13.79 Other lesions of oral mucosa; F10.229 Alcohol dependence with intoxication, unspecified; K21.9 Gastro-esophageal reflux disease without esophagitis; F32.9 Major depressive disorder, single episode, unspecified; Z79.899 Other long term (current) drug therapy; Y90.7 Blood alcohol level of 200-239 mg/100 ml
CPT/HCPCS: 36415; 80048; 80076; 81001; 83690; 83735; 85025; 85610; 93005; 93010; 96361; 96365; 96375; 96376; 99284; 99285-25; A9270-GY; C9113; G0480; J0696; J2060; J2405; J7030

== ENCOUNTER 2019-04-21 23:41 | Emergency (ER) | payer OTHER ==
--- NOTE | 2019-04-22 00:33 | EDM.PDOCBH ---
ED HPI GENERAL MEDICAL PROBLEM - General Chief Complaint: Drug or Alcohol Abuse Stated Complaint: MEDICAL VIA TRI Time Seen by Provider: 04/22/19 00:15 Source of Information: Reports: Patient, EMS, Old Records, RN History Limitations: Reports: No Limitations - History of Present Illness INITIAL COMMENTS - FREE TEXT/NARRATIVE: 58 yo male here via EMS intoxicated requesting medical clearance and detox at the [facility] in [place]. He last drank today. Has had a small amount of blood in stool he attributes to hemorrhoids. Vomiting today, EMS gave Zofran en route with benefit. Is not aware of any recent illnesses. Denies use of other drugs. Has been through detox before. Has a remote hx of seizures and hallucinations in association with withdrawal. Complains of low back pain. Onset: Unknown/Unsure Duration: Chronic, Waxing/Waning Location: Reports: Generalized Quality: Reports: Other (no pain other than his low back pain.) Severity: Severe (hx of alcohol abuse) Improves with: Reports: Other (detox from ETOH use. ) Worsens with: Reports: Other (continued alcohol use/abuse. ) Context: Reports: Other (See HPI) Associated Symptoms: Reports: Nausea/Vomiting, Other (Tremor). Denies: Chest Pain, Fever/Chills, Rash Treatments JUNIOR ESTIMATOR: Reports: See EMS Report Bilateral Flank Pain Score (Numeric/FACES): 2 - Related Data Allergies Allergy/AdvReac Type Severity Reaction Status Date / Time No Known Allergies Allergy Verified 04/21/19 23:53 Home Meds: Home Meds ClonazePAM [KlonoPIN] 1 mg PO BEDTIME 03/26/15 [History] Sertraline [Zoloft] 1.5 tab PO DAILY 11/24/18 [History] clonazePAM [Clonazepam] 1 mg PO BID PRN 5 Days #10 tab.rapdis 11/24/18 [Rx] Aspirin [Halfprin] 81 mg PO DAILY 04/22/19 [History] Cetirizine [ZyrTEC] 10 mg PO DAILY 04/22/19 [History] Dicyclomine [Bentyl] 10 mg PO TID 04/22/19 [History] Folic Acid 1 mg PO DAILY 04/22/19 [History] Thiamine HCl [Vitamin B-1] 100 mg PO DAILY 04/22/19 [History] Past Medical History Gastrointestinal History: Reports: GERD Musculoskeletal History: Reports: Fracture Neurological History: Reports: Concussion Other Neuro History: Restless leg syndrome Psychiatric History: Reports: Addiction, Depression Hematologic History: Reports: Folic Acid - Infectious Disease History Infectious Disease History: Reports: Chicken Pox - Past Surgical History GI Surgical History: Reports: Colonoscopy, EGD Social & Family History - Family History Cardiac: Reports: CAD - Tobacco Use Smoking Status *Q: Current Every Day Smoker Years of Tobacco use: 42 Packs/Tins Daily: 1 - Caffeine Use Caffeine Use: Reports: Soda Caffeine Use Comment: drinks a case of diet pepsi a day - Alcohol Use Days Per Week of Alcohol Use: 7 Number of Drinks Per Day: 10 Total Drinks Per Week: 70 Date of Last Drink: 04/22/19 - Recreational Drug Use Recreational Drug Use: Yes Drug Use in Last 12 Months: Yes Recreational Drug Type: Reports: Marijuana/Hashish Recreational Drug Use Frequency: Not Used In Over 1 Month ED ROS GENERAL - Review of Systems Review Of Systems: See Below Constitutional: Reports: No Symptoms HEENT: Reports: No Symptoms Respiratory: Reports: No Symptoms Cardiovascular: Reports: No Symptoms GI/Abdominal: Reports: Hematochezia, Nausea, Vomiting. Denies: Abdominal Pain, Black Stool, Bloody Stool, Constipation, Diarrhea, Distension, Flatus, Hematemesis, Melena : Reports: No Symptoms Musculoskeletal: Reports: Back Pain (low, bilateral) Skin: Reports: No Symptoms Neurological: Reports: Tremors, Difficulty Walking (due to intoxication), Other (seeing black spots on the wall, some tremors). Denies: Change in Speech Psychiatric: Reports: No Symptoms ED EXAM, BEHAVIORAL HEALTH - Physical Exam Exam: See Below Exam Limited By: No Limitations General Appearance: Alert, WD/WN, No Apparent Distress Eye Exam: Bilateral Eye: Normal Inspection Ears: Normal External Exam, Normal Canal, Hearing Grossly Normal Nose: Normal Inspection, No Blood Throat/Mouth: Normal Inspection, Normal Lips, Normal Oropharynx, Normal Voice, No Airway Compromise Head: Atraumatic, Normocephalic Neck: Normal Inspection Respiratory/Chest: No Respiratory Distress, Lungs Clear, Normal Breath Sounds, No Accessory Muscle Use Cardiovascular: Regular Rate, Rhythm, No Edema GI/Abdominal: Normal Bowel Sounds, Soft, Non-Tender, No Distention Back Exam: Normal Inspection. No: CVA Tenderness (R), CVA Tenderness (L) Extremities: Normal Inspection, Normal Range of Motion, Non-Tender, No Pedal Edema Neurological: Alert, Normal Mood/Affect, CN II-XII Intact, No Motor/Sensory Deficits, Oriented x 3, Other (not able to tell me exactly how much he drank, when he last had a seizure, etc. ) Psychiatric: Alert, Normal Affect, Normal Mood, Oriented Skin Exam: Warm, Dry, Intact, Normal color, No rash COURSE, BEHAVIORAL HEALTH COMP - Course Vital Signs: Last Vital Signs Temp 37.3 C 04/22/19 00:31 Pulse 85 04/21/19 23:50 Resp 16 04/21/19 23:50 BP 126/69 04/21/19 23:50 Pulse Ox 97 04/21/19 23:50 Orders, Labs, Meds: Active Orders 24 hr Category Date Time Status Lactated Ringers [Ringers, Lactated] 1,000 ml Med 04/22/19 01:21 Active IV BOLUS Medication Orders Lactated Ringer's (Ringers, Lactated) 1,000 mls @ 1,000 mls/hr IV BOLUS ONE Stop: 04/22/19 02:20 Last Admin: 04/22/19 01:25 Dose: 1,000 mls/hr Laboratory Tests 04/22/19 04/22/19 04/22/19 Range/Units 00:30 00:30 00:30 WBC 6.7 (4.5-11.0) K/uL RBC 4.78 (4.30-5.90) M/uL Hgb 14.5 (12.0-15.0) g/dL Hct 42.8 (40.0-54.0) % MCV 90 (80-98) fL MCH 30 (27-31) pg MCHC 34 (32-36) % Plt Count 207 (150-400) K/uL PT (9.5-12.0) sec INR (0.80-1.20) APTT (27.0-36.0) sec Sodium 148 (140-148) mmol/L Potassium 3.9 (3.6-5.2) mmol/L Chloride 107 (100-108) mmol/L Carbon Dioxide 29 (21-32) mmol/L Anion Gap 12.3 (5.0-14.0) mmol/L BUN 8 D (7-18) mg/dL Creatinine 0.9 (0.8-1.3) mg/dL Est Cr Clr Drug Dosing 102.34 mL/min Estimated GFR (MDRD) > 60 (>60) Glucose 112 H (74-106) mg/dL Lactic Acid (0.4-2.0) mmol/L Calcium 8.2 L (8.5-10.1) mg/dL Magnesium (1.8-2.4) mg/dL Urine Color (YELLOW) Urine Appearance (CLEAR) Urine pH (5.0-8.0) Ur Specific [place] (1.008-1.030) Urine Protein (NEGATIVE) mg/dL Urine Glucose (UA) (NEGATIVE) mg/dL Urine Ketones (NEGATIVE) mg/dL Urine Occult Blood (NEGATIVE) Urine Nitrite (NEGATIVE) Urine Bilirubin (NEGATIVE) Urine Urobilinogen (0.2-1.0) EU/dL Ur Leukocyte Esterase (NEGATIVE) Urine RBC (0-5) Urine WBC (0-5) Ur Epithelial Cells Amorphous Sediment Urine Bacteria Urine Mucus Salicylates (2.0-20.0) mg/dL Urine Opiates Screen (NEGATIVE) Ur Oxycodone Screen (NEGATIVE) Urine Methadone Screen (NEGATIVE) Ur Propoxyphene Screen (NEGATIVE) Acetaminophen (10.0-30.0) ug/mL Ur Barbiturates Screen (NEGATIVE) Ur Tricyclics Screen (NEGATIVE) Ur Phencyclidine Scrn (NEGATIVE) Ur Amphetamine Screen (NEGATIVE) U Methamphetamines Scrn (NEGATIVE) Urine MDMA Screen (NEGATIVE) U Benzodiazepines Scrn (NEGATIVE) U Cocaine Metab Screen (NEGATIVE) U Marijuana (THC) Screen (NEGATIVE) Ethyl Alcohol 230 mg/dL 04/22/19 04/22/19 04/22/19 Range/Units 00:30 00:30 00:30 WBC (4.5-11.0) K/uL RBC (4.30-5.90) M/uL Hgb (12.0-15.0) g/dL Hct (40.0-54.0) % MCV (80-98) fL MCH (27-31) pg MCHC (32-36) % Plt Count (150-400) K/uL PT 11.7 (9.5-12.0) sec INR 1.09 (0.80-1.20) APTT 24.9 L (27.0-36.0) sec Sodium (140-148) mmol/L Potassium (3.6-5.2) mmol/L Chloride (100-108) mmol/L Carbon Dioxide (21-32) mmol/L Anion Gap (5.0-14.0) mmol/L BUN (7-18) mg/dL Creatinine (0.8-1.3) mg/dL Est Cr Clr Drug Dosing mL/min Estimated GFR (MDRD) (>60) Glucose (74-106) mg/dL Lactic Acid 3.2 H (0.4-2.0) mmol/L Calcium (8.5-10.1) mg/dL Magnesium (1.8-2.4) mg/dL Urine Color (YELLOW) Urine Appearance (CLEAR) Urine pH (5.0-8.0) Ur Specific [place] (1.008-1.030) Urine Protein (NEGATIVE) mg/dL Urine Glucose (UA) (NEGATIVE) mg/dL Urine Ketones (NEGATIVE) mg/dL Urine Occult Blood (NEGATIVE) Urine Nitrite (NEGATIVE) Urine Bilirubin (NEGATIVE) Urine Urobilinogen (0.2-1.0) EU/dL Ur Leukocyte Esterase (NEGATIVE) Urine RBC (0-5) Urine WBC (0-5) Ur Epithelial Cells Amorphous Sediment Urine Bacteria Urine Mucus Salicylates (2.0-20.0) mg/dL Urine Opiates Screen (NEGATIVE) Ur Oxycodone Screen (NEGATIVE) Urine Methadone Screen (NEGATIVE) Ur Propoxyphene Screen (NEGATIVE) Acetaminophen 0.0 L (10.0-30.0) ug/mL Ur Barbiturates Screen (NEGATIVE) Ur Tricyclics Screen (NEGATIVE) Ur Phencyclidine Scrn (NEGATIVE) Ur Amphetamine Screen (NEGATIVE) U Methamphetamines Scrn (NEGATIVE) Urine MDMA Screen (NEGATIVE) U Benzodiazepines Scrn (NEGATIVE) U Cocaine Metab Screen (NEGATIVE) U Marijuana (THC) Screen (NEGATIVE) Ethyl Alcohol mg/dL 04/22/19 04/22/19 04/22/19 Range/Units 00:30 00:30 00:35 WBC (4.5-11.0) K/uL RBC (4.30-5.90) M/uL Hgb (12.0-15.0) g/dL Hct (40.0-54.0) % MCV (80-98) fL MCH (27-31) pg MCHC (32-36) % Plt Count (150-400) K/uL PT (9.5-12.0) sec INR (0.80-1.20) APTT (27.0-36.0) sec Sodium (140-148) mmol/L Potassium (3.6-5.2) mmol/L Chloride (100-108) mmol/L Carbon Dioxide (21-32) mmol/L Anion Gap (5.0-14.0) mmol/L BUN (7-18) mg/dL Creatinine (0.8-1.3) mg/dL Est Cr Clr Drug Dosing mL/min Estimated GFR (MDRD) (>60) Glucose (74-106) mg/dL Lactic Acid (0.4-2.0) mmol/L Calcium (8.5-10.1) mg/dL Magnesium 1.4 L (1.8-2.4) mg/dL Urine Color (YELLOW) Urine Appearance (CLEAR) Urine pH (5.0-8.0) Ur Specific [place] (1.008-1.030) Urine Protein (NEGATIVE) mg/dL Urine Glucose (UA) (NEGATIVE) mg/dL Urine Ketones (NEGATIVE) mg/dL Urine Occult Blood (NEGATIVE) Urine Nitrite (NEGATIVE) Urine Bilirubin (NEGATIVE) Urine Urobilinogen (0.2-1.0) EU/dL Ur Leukocyte Esterase (NEGATIVE) Urine RBC (0-5) Urine WBC (0-5) Ur Epithelial Cells Amorphous Sediment Urine Bacteria Urine Mucus Salicylates 0.5 L (2.0-20.0) mg/dL Urine Opiates Screen Negative (NEGATIVE) Ur Oxycodone Screen Negative (NEGATIVE) Urine Methadone Screen Negative (NEGATIVE) Ur Propoxyphene Screen Negative (NEGATIVE) Acetaminophen (10.0-30.0) ug/mL Ur Barbiturates Screen Negative (NEGATIVE) Ur Tricyclics Screen Negative (NEGATIVE) Ur Phencyclidine Scrn Negative (NEGATIVE) Ur Amphetamine Screen Negative (NEGATIVE) U Methamphetamines Scrn Negative (NEGATIVE) Urine MDMA Screen Negative (NEGATIVE) U Benzodiazepines Scrn Negative (NEGATIVE) U Cocaine Metab Screen Negative (NEGATIVE) U Marijuana (THC) Screen Negative (NEGATIVE) Ethyl Alcohol mg/dL 04/22/19 Range/Units 00:35 WBC (4.5-11.0) K/uL RBC (4.30-5.90) M/uL Hgb (12.0-15.0) g/dL Hct (40.0-54.0) % MCV (80-98) fL MCH (27-31) pg MCHC (32-36) % Plt Count (150-400) K/uL PT (9.5-12.0) sec INR (0.80-1.20) APTT (27.0-36.0) sec Sodium (140-148) mmol/L Potassium (3.6-5.2) mmol/L Chloride (100-108) mmol/L Carbon Dioxide (21-32) mmol/L Anion Gap (5.0-14.0) mmol/L BUN (7-18) mg/dL Creatinine (0.8-1.3) mg/dL Est Cr Clr Drug Dosing mL/min Estimated GFR (MDRD) (>60) Glucose (74-106) mg/dL Lactic Acid (0.4-2.0) mmol/L Calcium (8.5-10.1) mg/dL Magnesium (1.8-2.4) mg/dL Urine Color Yellow (YELLOW) Urine Appearance Cloudy A (CLEAR) Urine pH 7.5 (5.0-8.0) Ur Specific [place] 1.020 (1.008-1.030) Urine Protein Negative (NEGATIVE) mg/dL Urine Glucose (UA) Negative (NEGATIVE) mg/dL Urine Ketones Negative (NEGATIVE) mg/dL Urine Occult Blood Negative (NEGATIVE) Urine Nitrite Negative (NEGATIVE) Urine Bilirubin Negative (NEGATIVE) Urine Urobilinogen 0.2 (0.2-1.0) EU/dL Ur Leukocyte Esterase Negative (NEGATIVE) Urine RBC 0-5 (0-5) Urine WBC 0-5 (0-5) Ur Epithelial Cells Few Amorphous Sediment Many Urine Bacteria Many Urine Mucus Not seen Salicylates (2.0-20.0) mg/dL Urine Opiates Screen (NEGATIVE) Ur Oxycodone Screen (NEGATIVE) Urine Methadone Screen (NEGATIVE) Ur Propoxyphene Screen (NEGATIVE) Acetaminophen (10.0-30.0) ug/mL Ur Barbiturates Screen (NEGATIVE) Ur Tricyclics Screen (NEGATIVE) Ur Phencyclidine Scrn (NEGATIVE) Ur Amphetamine Screen (NEGATIVE) U Methamphetamines Scrn (NEGATIVE) Urine MDMA Screen (NEGATIVE) U Benzodiazepines Scrn (NEGATIVE) U Cocaine Metab Screen (NEGATIVE) U Marijuana (THC) Screen (NEGATIVE) Ethyl Alcohol mg/dL Medications Generic Name Dose Route Start Last Admin Trade Name Freq PRN Reason Stop Dose Admin Lactated Ringer's 1,000 mls @ 1,000 mls/hr 04/22/19 01:21 04/22/19 01:25 Ringers, Lactated IV 04/22/19 02:20 1,000 mls/hr BOLUS ONE Administration Discontinued Medications Generic Name Dose Route Start Last Admin Trade Name Panfilo PRN Reason Stop Dose Admin Ketorolac Tromethamine 30 mg 04/22/19 00:31 04/22/19 00:43 Toradol IVPUSH 04/22/19 00:32 30 mg ONETIME ONE Administration Magnesium Oxide 800 mg 04/22/19 01:35 Magnesium Oxide PO 04/22/19 01:36 ONETIME ONE Ondansetron HCl 4 mg 04/22/19 01:04 04/22/19 01:12 Zofran IVPUSH 04/22/19 01:05 4 mg ONETIME ONE Administration Thiamine HCl 100 mg 04/22/19 00:32 04/22/19 00:44 Vitamin B-1 PO 04/22/19 00:33 100 mg ONETIME ONE Administration Departure - Departure Time of Disposition: 02:00 Disposition: DC/Tfer to Other 70 Condition: Fair Clinical Impression: Alcohol abuse, Hypomagnesemia Nausea and vomiting Qualifiers: Vomiting type: unspecified Vomiting Intractability: non-intractable Qualified Code(s): R11.2 - Nausea with vomiting, unspecified - Discharge Information *PRESCRIPTION DRUG MONITORING PROGRAM REVIEWED*: Not Applicable *COPY OF PRESCRIPTION DRUG MONITORING REPORT IN PATIENT MASTER: Not Applicable Referrals: PCP,None [Primary Care Provider] - Forms: ED Department Discharge Sepsis Event Note - Evaluation Sepsis Screening Result: No Definite Risk - Focused Exam Vital Signs: Vital Signs Temp Pulse Resp BP Pulse Ox 04/22/19 00:31 37.3 C 04/21/19 23:50 36.5 C 85 16 126/69 97 Date Exam was Performed: 04/22/19 Time Exam was Performed: 01:44 - My Orders Last 24 Hours: My Active Orders 04/22/19 01:21 Lactated Ringers [Ringers, Lactated] 1,000 ml IV BOLUS - Assessment/Plan Last 24 Hours: My Active Orders 04/22/19 01:21 Lactated Ringers [Ringers, Lactated] 1,000 ml IV BOLUS
[2019-04-22] MEDS: Ketorolac 30 MG/ML SDV IVPUSH ONE (00:43)
[2019-04-22] MEDS: Thiamine 100 MG Tab PO ONE (00:44)
[2019-04-22] MEDS: Ondansetron 4 MG/2 ML SDV IVPUSH ONE (01:12)
[2019-04-22] MEDS: Lactated Ringers 1,000 ML IV ONE (01:25)
[2019-04-22 01:51] VITALS: BP 132/70; PULSE 89
[2019-04-22] MEDS: Magnesium Oxide 400 MG Tab PO ONE (01:59)
[2019-04-22] MEDS: LORazepam 1 MG Tab PO ONE (02:37)
[2019-04-22] MEDS: Metoclopramide 10 MG/2 ML SDV IVPUSH ONE (02:38)
== END 2019-04-22 02:40 | disposition other institution (70) ==
LOC: JP.ED 23:41
DX: E83.42 Hypomagnesemia (principal); F10.229 Alcohol dependence with intoxication, unspecified; R11.2 Nausea with vomiting, unspecified; F17.210 Nicotine dependence, cigarettes, uncomplicated; Y90.7 Blood alcohol level of 200-239 mg/100 ml
CPT/HCPCS: 36415; 80048; 80305; 80307; 81001; 83605; 83735; 85027; 85610; 85730; 96361; 96374; 96375; 99284; 99285; A9270; J1885; J2405; J2765; J7120